=== PATIENT | male | born 1960 | race Caucasian/White ===

== ENCOUNTER 2024-08-06 12:43 | Outpatient (CLI) | payer MEDICARE, BC ==
--- NOTE | 2024-08-06 14:11 | VASCULAR REPORT ---
Left lower extremity venous duplex Clinical History: edema Comparison: None Technique: Duplex Doppler evaluation of the deep venous systems of both lower extremities from the common femora l veins to the popliteal veins including color Doppler and spectral/pulsed waveform analysis was perf ormed. Findings: RIGHT SIDE: The bilateral common femoral vein demonstrates appropriate compressibility and waveform variability. There is compressibility/patency of the great saphenous vein at the proximal thigh. The femoral vein demonstrates appropriate compressibility and waveform variability. The deep femoral vein demonstrates appropriate compressibility and waveform variability. The popliteal vein demonstrates appropriate compressibility and waveform variability. There is normal compressibility at the tibioperoneal trunk. Impression: No right or left femoropopliteal venous thrombosis.
== END 2024-08-06 23:59 | disposition home or self-care (01) ==
LOC: VAS 12:43
PROVIDERS: ATTEND Physician Assistant
DX: M17.11 Unilateral primary osteoarthritis, right knee (principal)
CPT/HCPCS: 93971

== ENCOUNTER 2024-11-17 09:01 | Day surgery (SDC) | payer MEDICARE, BC ==
[2024-11-13 13:06] LABS: MEAN PLATELET VOLUME 7.3 FL (7.4-10.4); RED CELL DISTRIBUTION WIDTH 14.7 % (11.5-14.5)
[2024-11-13 13:18] LABS: APTT 27 SECONDS (22-32); INR 1.0 INR
[2024-11-13 13:27] LABS: CHOL/HDL RATIO 4.0 (0.00-4.99); CREATININE 1.10 MG/DL (0.60-1.10); LDL CHOLESTEROL 143 MG/DL (50-100); TOTAL CARBON DIOXIDE 27.1 MMOL/L (24-32); eGFR 67 ML/MIN
[~2024-11-17] VITALS: Ht 175.3 cm; Wt 122.7 kg
[2024-11-17 09:20] VITALS: BP 145/94; PULSE 68; RESP 12; RESP 14; TEMP 98.2; O2SAT 97
[2024-11-17] MEDS ORDERED: CELE-127 PO (09:27)
[2024-11-17] MEDS ORDERED: TRAM50TA2 PO (09:27)
[2024-11-17] MEDS ORDERED: OXYC1TAB17 PO (09:27)
[2024-11-17] MEDS ORDERED: METO50TA17 PO (09:29)
[2024-11-17] MEDS ORDERED: APIX5TAB3 PO (09:29)
[2024-11-17] MEDS ORDERED: normal saline 1000ml 1,000 ML IV SCH (09:45)
[2024-11-17] MEDS ORDERED: fentaNYL/PF 50MCG/1 ML 2ML syringe IV ONE (09:45)
[2024-11-17] MEDS ORDERED: MIDAZolam 1mg/ml 10ml vial IV ONE (09:45)
[2024-11-17] MEDS ORDERED: amiodarone 50MG/ML inj IV ONE (11:41)
[2024-11-17] MEDS ORDERED: atropine 0.1mg/ml 10ml syringe ONE (11:42)
[2024-11-17] MEDS ORDERED: fentaNYL/PF 50MCG/1 ML 2ML syringe ONE ×2 (11:42→12:50)
[2024-11-17] MEDS ORDERED: midazolam 1 mg/ML 2ml injection ONE ×3 (11:42→12:50)
[2024-11-17 13:10] VITALS: BP 130/89; PULSE 77; RESP 14; O2SAT 95
--- NOTE | 2024-11-17 13:17 | ELECTROCARDIOGRAPH REPORT ---
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 Rebeca Vela Measurements Intervals [place] Rate: 75 P: 61 MN: 152 QRS: 20 QRSD: 96 T: -3 QT: 422 QTc: 472 Interpretive Statements Sinus rhythm Non sp changes Electronically Signed On 11-18-2024 6:39:[address] Rebeca Vela Please click the below link to view image of tracing.
[2024-11-17 13:25] VITALS: BP 132/80; PULSE 71; RESP 13; O2SAT 96
[2024-11-17 13:40] VITALS: BP 129/90; PULSE 70; RESP 13; O2SAT 95
== END 2024-11-17 13:45 | disposition home or self-care (01) ==
LOC: SSTAY O 09:01
PROVIDERS: ATTEND Student in an Organized Health Care Education/Training Program
DX: I48.91 Unspecified atrial fibrillation (principal); I10 Essential (primary) hypertension; E78.00 Pure hypercholesterolemia, unspecified; E66.9 Obesity, unspecified; I48.92 Unspecified atrial flutter; M17.0 Bilateral primary osteoarthritis of knee; Z79.01 Long term (current) use of anticoagulants; Z79.891 Long term (current) use of opiate analgesic; Z79.899 Other long term (current) drug therapy; Z68.39 Body mass index [BMI] 39.0-39.9, adult
CPT/HCPCS: 36415; 80048; 80061; 83695; 85025; 85610; 85730; 92960; 93005; J2250; J3010; J7030; Z7610; 99152; J0282; J0461

== ENCOUNTER 2025-02-02 09:15 | Day surgery (SDC) | payer MEDICARE, BC ==
[2025-01-29 12:28] LABS: MEAN PLATELET VOLUME 7.5 FL (7.4-10.4); RED CELL DISTRIBUTION WIDTH 14.4 % (11.5-14.5)
[2025-01-29 12:41] LABS: APTT 27 SECONDS (22-32); INR 1.0 INR
[2025-01-29 12:49] LABS: CHOL/HDL RATIO 3.3 (0.00-4.99); CREATININE 0.94 MG/DL (0.60-1.10); LDL CHOLESTEROL 130 MG/DL (50-100); TOTAL CARBON DIOXIDE 28.7 MMOL/L (24-32); eGFR 81 ML/MIN
[~2025-02-02] VITALS: Ht 185.4 cm; Wt 126.1 kg
[~2025-02-02 09:15] MED LIST: APIX5TAB3 PO; OLME40TA18 PO; SOTA80TA PO
[2025-02-02] MEDS ORDERED: fentaNYL/PF 50MCG/1 ML 2ML syringe IV ONE (09:40)
[2025-02-02] MEDS ORDERED: MIDAZolam 1mg/ml 10ml vial IV ONE (09:40)
[2025-02-02 09:45] VITALS: BP 131/91; PULSE 92; RESP 20; TEMP 98.2; O2SAT 96
[2025-02-02] MEDS: normal saline 1000ml 1,000 ML IV SCH (11:24)
[2025-02-02] MEDS ORDERED: fentaNYL/PF 50MCG/1 ML 2ML syringe ONE (12:33)
[2025-02-02] MEDS ORDERED: atropine 0.1mg/ml 10ml syringe ONE (12:33)
[2025-02-02] MEDS ORDERED: midazolam 1 mg/ML 2ml injection ONE ×2 (12:33→12:51)
[2025-02-02 13:09] VITALS: BP 111/84; PULSE 66; RESP 17; O2SAT 96
[2025-02-02 13:15] VITALS: BP 117/77; PULSE 67; RESP 20; O2SAT 96
[2025-02-02 13:30] VITALS: BP 101/74; PULSE 70; RESP 19; O2SAT 93
[2025-02-02 13:45] VITALS: BP 104/69; PULSE 69; RESP 18; O2SAT 94
--- NOTE | 2025-02-02 13:52 | ELECTROCARDIOGRAPH REPORT ---
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 VALERY Sheffield Measurements Intervals [place] Rate: 63 P: 39 OR: 163 QRS: 29 QRSD: 61 T: -42 QT: 552 QTc: 566 Interpretive Statements Sinus rhythm Atrial premature complexes Left atrial enlargement Borderline T abnormalities, diffuse leads Prolonged QT interval Electronically Signed On 02-03-2025 13:17:[address] VALERY Sheffield Please click the below link to view image of tracing.
[2025-02-02 13:53] VITALS: BP 111/65; PULSE 70; RESP 18; O2SAT 94
== END 2025-02-02 14:00 | disposition home or self-care (01) ==
LOC: SSTAY O 09:15
PROVIDERS: ATTEND Student in an Organized Health Care Education/Training Program
DX: I48.91 Unspecified atrial fibrillation (principal); I48.92 Unspecified atrial flutter; I49.1 Atrial premature depolarization; E78.5 Hyperlipidemia, unspecified; E66.9 Obesity, unspecified; G47.33 Obstructive sleep apnea (adult) (pediatric); I10 Essential (primary) hypertension; M17.0 Bilateral primary osteoarthritis of knee; Z68.36 Body mass index [BMI] 36.0-36.9, adult; Z96.651 Presence of right artificial knee joint
CPT/HCPCS: 36415; 80048; 80061; 85025; 85610; 85730; 92960; 93005; 99152; J2250; J3010; J7030; Z7610; J0461